=== PATIENT | male | born 1990 | race Caucasian/White ===

== ENCOUNTER 2021-04-05 20:08 | Observation (INO) ==
[2021-04-05] MEDS ORDERED: SODIUM CHLORIDE 0.9% 1000ML 1,000 ML IV ONE (20:51)
[2021-04-05] MEDS ORDERED: methylPREDNISolone 125 MG/2 ML VIAL IV STA (20:51)
[2021-04-05] MEDS ORDERED: cefTRIAXone SODIUM 1,000 MG/50 ML BAG IV STA (20:51)
--- NOTE | 2021-04-05 20:57 | Emergency Department Note ---
Impression & Plan Cellulitis, Tick bite ED Provider Note NAME: KARINA CLEMENTS AGE: 30 SEX: M : 1990 ARRIVES VIA: Walk-In INFORMANT: Patient ED PROVIDER(S): Kwasi Frank DO CHIEF COMPLAINT: Rash HPI: Patient is a 30-year-old male who presents ER for rash on his left flank. He notes this started about a week and a half ago after a tick bite. It gradually got worse. He was seen initially placed on Bactrim and then amoxicillin. He was seen here and given Rocephin and switched to doxycycline combination with 1 week of Keflex. He then presented again within the past 24 h ours as it was getting worse and given additional Rocephin. He returns tonight as the rash has gotten bigger and now he has some on the right flank. Denies any fevers. No headache or change in vision. No chest pain or shortness of breath. ROS: See above HPI for pertinent positives & negatives. A total of 10 systems reviewed and were otherwise negative. PAST MEDICAL HISTORY:See Below PAST SURGICAL HISTORY:See Below FAMILY HISTORY:See Below SOCIAL HISTORY:See Below HOME MEDICATIONS:See Below ALLERGIES:See Below VITALS:See Below PHYSICAL EXAMINATION: GENERAL: Sitting up in bed, alert, well appearing, well nourished, no distress, non-toxic EYE EXAM: normal conjunctiva. OROPHARYNX: no exudate, no erythema, lips, buccal mucosa, and tongue normal and mucous membranes are moist NECK: supple, no nuchal rigidity, no adenopathy, non-tender LUNGS: Clear to auscultation. Normal chest wall mechanics HEART: no murmurs, S1 normal and S2 normal ABDOMEN: abdomen soft, non-tender, normo-active bowel sounds, no masses, no rebound or guarding. BACK: Back is symmetrical on inspection and there is no deformity, no midline tenderness, no CVA tenderness. SKIN: Erythema which is warm and tender on the left flank. No petechiae. Peeling skin in the middle negative Nikolsky. Right flank with blotchy erythema which is raised. Negative Nikolsky. No petechiae. UPPER EXTREMITIES: upper extremities are grossly normal. LOWER EXTREMITIES: No pitting edema. NEURO EXAM: Normal sensorium, cranial nerves II-XII grossly intact, normal speech, no gross weakness of arms, no gross weakness of legs. MEDICAL DECISION MAKING: Patient is a 30-year-old male who presents the ER for his third visit. He has been treated for cellulitis on his left flank. The presents today as he noticed some redness in the right flank. Reviewed previous images that they took as this has progressed. Initially this did look like a dermatitis. Has Progressed to look more like a cellulitis. The rash now on the right flank I do believe looks more urticarial/hive related. Patient has been on doxycycline and Keflex as an outpatient and has been getting worse. IV was established blood was obtained. Labs show no significant leukocytosis or anemia. BMP was unremarkable. He was given steroids and did seem to improve. With the recurrent visits I do feel it warrants observation. Triage Nursing notes reviewed. Limited review of prior medical records performed Vital Signs: reviewed and remarkable for HTN Differential diagnosis: Cellulitis, abscess, MRSA infection, DVT, necrotizing fasciitis, dermatitis, drug eruption, allergic reaction, as well as other pathologies. ER treatment provided: See below Diagnostics interpreted by me: ECG: none Cardiac Monitoring: An order was placed for continuous cardiac monitoring. The monitor shows a rate of 52 with sinus rhythm. Laboratory studies: As stated above and show below. Imaging studies: See below Consultation(s): Discussed with Dr. Oliveira who for further evaluation Procedures: none Critical Care: None Past Med/Surg History Medical History No pertinent past medical history Surgical History No pertinent past surgical history Social History Smoking Status: Never smoker Preferred Language: [place] Island[place] Feels Safe at Home: Yes Allergies Allergies Allergy/AdvReac Type Severity Reaction Status Date / Time bee venom protein (honey bee) Allergy localized Verified 04/05/21 20:59 swelling and redness Home Meds Home Medications Medication Instructions Recorded Confirmed cetirizine [Zyrtec] 10 mg PO DAILY 04/01/21 04/05/21 Previous Rx's Medication Instructions Recorded cephalexin 500 mg PO QID 7 Days #28 tab 04/01/21 doxycycline hyclate 100 mg PO Q12H 21 Days #41 tab 04/01/21 Results & Data (ED) Vital Signs Vital Signs - 24 hr 04/05/21 20:11 04/05/21 22:15 Temperature 36.3 C L Temperature Source Temporal Artery Scan Pulse Rate 62 Pulse Rate [Apical] 50 L Respiratory Rate 18 18 Respiratory Effort / Characteristics Non-Labored Spontaneous Respiratory Depth Normal Blood Pressure 163/91 H Blood Pressure [Left Arm] 124/68 Blood Pressure Mean 115 Blood Pressure Mean [Left Arm] 86 Pulse Oximetry 99 100 Oxygen Delivery Method Room Air Room Air Sepsis Recent Fever Within 48 Hours No Sepsis New/Unexplained Change in Mental Status N/A Sepsis Action Taken by Nursing No Action Required Laboratory Data Result diagrams: 04/05/21 20:59 04/05/21 20:59 Lab Results 04/05/21 04/05/21 Range/Units 20:59 20:59 WBC 6.12 (4.8-10.8) K/uL RBC 4.43 L (4.7-6.1) M/uL Hgb 13.3 L (14.0-18.0) g/dL Hct 40.2 L (42-52) % MCV 90.7 (80-100) fL MCH 30.0 (25-34) pg MCHC 33.1 (32-36) g/dL RDW Std Deviation 42.8 (36.4-46.3) fL RDW Coeff of Davy 12.8 (11.5-14.5) % Plt Count 254 (130-400) K/uL MPV 11.4 H (7.4-10.4) fL Immature Gran % (Auto) 0.0 % Neut % (Auto) 33.6 % Lymph % (Auto) 46.7 % Kendall % (Auto) 12.1 % Eos % (Auto) 6.5 % Baso % (Auto) 1.1 % Neut # (Auto) 2.05 (1.4-6.5) K/uL Lymph # (Auto) 2.86 (1.2-3.4) K/uL Kendall # (Auto) 0.74 H (0.11-0.59) K/uL Eos # (Auto) 0.40 (0-0.5) K/uL Baso # (Auto) 0.07 (0-0.2) K/uL Immature Gran # (Auto) 0.00 (0.00-0.02) K/uL Sodium 142 (136-145) mmol/L Potassium 3.6 (3.5-5.1) mmol/L Chloride 107 (98-107) mmol/L Carbon Dioxide 31 (21-32) mmol/L Anion Gap 4.0 (3-11) BUN 15 (7-18) mg/dl Creatinine 1.25 D (0.6-1.4) mg/dl Est Cr Clr Drug Dosing 94.0 ml/min Est GFR ( Amer) 88.4 ml/min Est GFR (Non-Af Amer) 76.2 ml/min BUN/Creatinine Ratio 11.7 (10-20) Glucose 95 (70-99) mg/dl Calcium 8.9 (8.5-10.1) mg/dl Administered Medications Vancomycin HCl 2,250 mg/ (Sodium Chloride) 545 mls @ 200 mls/hr IV NOW ONE Stop: 04/06/21 00:57 Last Admin: 04/05/21 22:53 Dose: 200 mls/hr Documented by: [id number] Discontinued Medications Sodium Chloride (Nss 1000ml) 1,000 mls @ 999 mls/hr IV .Q1H1M ONE Stop: 04/05/21 21:51 Last Admin: 04/05/21 21:07 Dose: 999 mls/hr Documented by: [id number] Ceftriaxone Sodium (Rocephin) 1,000 mg in 50 mls @ 100 mls/hr IV NOW STA Stop: 04/05/21 21:20 Last Admin: 04/05/21 21:07 Dose: 100 mls/hr Documented by: [id number] Methylprednisolone (Methylprednisolone 125 Mg/2 Ml Vial) 125 mg IV NOW STA Stop: 04/05/21 20:52 Last Admin: 04/05/21 21:07 Dose: 125 mg Documented by: [id number] Discharge Plan Visit Data Chief Complaint: Skin Problem Stated Complaint: SKIN INFECTION ED Provider: Kwasi Frank Discharge Problem: Cellulitis, Tick bite Forms Stand Alone Forms: [facility] [place] [employer] [facility] [place] Prescriptions Prescriptions: No Action doxycycline hyclate 100 mg tablet 100 mg PO Q12H 21 Days Qty: 41 RF: 0 cephalexin 500 mg tablet 500 mg PO QID 7 Days Qty: 28 RF: 0 cetirizine [Zyrtec] 10 mg Tablet 10 mg PO DAILY RF: 0 Discharge Problem: Cellulitis Qualifiers: Site of cellulitis: trunk Site of cellulitis of trunk: abdominal wall Qualified Code(s): L03.311 - Cellulitis of abdominal wall Tick bite Qualifiers: Encounter type: initial encounter Qualified Code(s): W57.XXXA - Bitten or stung by nonvenomous insect and other nonvenomous arthropods, initial encounter
[2021-04-05 21:19] LABS: Basophils # (auto) 0.07 K/uL (0-0.2); Basophils % (auto) 1.1 %; Eosinophils % (auto) 6.5 %; Hematocrit (blood only) 40.2 % (42-52); Hemoglobin 13.3 g/dL (14.0-18.0); Lymphocytes # (auto) 2.86 K/uL (1.2-3.4); Lymphocytes % (auto) 46.7 %; Mean Corpuscular Hgb Conc 33.1 g/dL (32-36); Mean Corpuscular Volume 90.7 fL (80-100); Mean Platelet Volume 11.4 fL (7.4-10.4); Monocytes # (auto) 0.74 K/uL (0.11-0.59); Monocytes % (auto) 12.1 %; Neutrophils # (auto) 2.05 K/uL (1.4-6.5); Neutrophils % (auto) 33.6 %; Platelet Count 254 K/uL (130-400); RDW Coefficient of Variation 12.8 % (11.5-14.5); RDW Standard Deviation 42.8 fL (36.4-46.3); Red Blood Count 4.43 M/uL (4.7-6.1); White Blood Count 6.12 K/uL (4.8-10.8)
[2021-04-05 21:35] LABS: BUN Creatinine Ratio 11.7 (10-20); Calcium 8.9 mg/dl (8.5-10.1); Est GFR (African American) 88.4 ml/min; Est GFR (Non-African American) 76.2 ml/min; Potassium 3.6 mmol/L (3.5-5.1)
[2021-04-05] MEDS ORDERED: VANCOMYCIN CONSULT ACTIVE PRN (22:14)
[2021-04-05] MEDS ORDERED: VANCOMYCIN HCL 2,250 MG in SODIUM CHLORIDE 0.9% 500 ML IV ONE (22:14)
--- NOTE | 2021-04-06 00:33 | History and Physical Report ---
DATE OF ADMISSION: 04/05/2021 CHIEF COMPLAINT: Tick bite and cellulitis of the flank region. HISTORY OF PRESENT ILLNESS: A 30-year-old male with no significant past medical history, had tick bite about a couple of weeks ago and 1 week ago he developed a rash in his left flank region. One week prior to rash he removed the tick and also had a couple of bug bites there. He went to PCP's office on 03/30/2021 and was prescribed Bactrim and one time dose of doxycycline was given. He went again on 03/31/2021 to his PCP's office with worsening cellulitis and amoxicillin was added to Bactrim, but as it was not getting better, he was advised to go to the ER. He came to the ER on 04/01/2021 and he was given a dose of Rocephin and discharged on doxycycline and Keflex. Again, he came to the ER on 04/04/2021 as he was not getting better. Some areas that were decreasing but some other areas were increased and he was given another shot of Rocephin and advised to continue doxycycline and Keflex, but today it has gone to the other flank too. So he came back here. His labs are okay. He was given a dose of Rocephin and started on vancomycin and we were called for admission. Currently resting comfortably and hemodynamically stable. Denies any fever, chills. He says sometimes feels like a sunburn kind of sensation to the rash area, mild itching, some dry area where tick and bugs had bitten. Some nausea from medications. Appetite is okay. No chest pain or shortness of breath. No cough, no headache, no blurred vision, no earache, no runny nose, no sore throat. Normal bowel and bladder movements. ALLERGIES: BEE VENOM. PAST MEDICAL HISTORY: As mentioned above. PAST SURGICAL HISTORY: None. MEDICATIONS: Currently on doxycycline and Keflex. FAMILY HISTORY: Significant for mother has allergies, asthma and hypertension. Grandmother has diabetes. Uncle has hypertension. Maternal grandfather has melanoma. SOCIAL HISTORY: Single. No smoking. Alcohol, 2 drinks a week. REVIEW OF SYMPTOMS: As per HPI. Rest of review of systems negative. PHYSICAL EXAMINATION: GENERAL: The patient is of moderate build, not in acute distress. VITAL SIGNS: Temperature 36.3, pulse 50, respiratory rate 18, blood pressure 124/68, oxygen 100% on room air. HEENT: Pupils equal, round, reactive to light. Oral mucosa moist. NECK: No JVD, no neck masses. CARDIOVASCULAR: S1, S2 heard, regular rate and rhythm, no murmur, no gallop. RESPIRATORY SYSTEM: Normal AP diameter. No accessory muscle use. No wheezing, no crackles. ABDOMEN: Soft, bowel sounds present, nontender. No distention. CENTRAL NERVOUS SYSTEM: Cranial nerves II-XII grossly intact, nonfocal. EXTREMITIES: No edema. SKIN: Erythematous rash seen mostly in the left flank and some mild rash on the back of his trunk up to the right flank is also seen. LABORATORY DATA: WBC 6, hemoglobin 13.3, hematocrit 40.2, platelets 254. Sodium 142, potassium 3.6, chloride 107, bicarbonate 31, BUN 15, creatinine 1.25, serum glucose 95, calcium 8.9. ASSESSMENT AND PLAN: This is a 30-year-old male who presents with ongoing cellulitis with tick bites and bug bites in the flank region. 1. Cellulitis. Tick bites and bug bites a couple of weeks ago, received 1 dose of doxycycline 1 week ago, and initially treated with Bactrim, but that is not getting better. Amoxicillin was added as outpatient. He was not getting better. He came to the ER twice and received dose of Rocephin and was placed on doxycycline and Keflex, but it is not getting better, so he came back here today. Empirically started on vancomycin and again given Rocephin in the ER. We will continue with vancomycin and Zosyn. Continue with p.o. doxycycline. . Monitor the response. Gentle fluids 1 liter.Will get lyme test and check for anaplasmosis. Monitor on medical floor. 2. Deep vein thrombosis prophylaxis, sequential compression devices. 3. Disposition: Closely monitor. Expect discharge home and follow with family doctor. PATRICIA
[2021-04-06] MEDS ORDERED: SODIUM CHLORIDE 0.9% 1000ML 1,000 ML IV SCH (00:49)
[2021-04-06] MEDS ORDERED: ACETAMINOPHEN 325 MG TAB PO PRN (00:49)
[2021-04-06] MEDS ORDERED: POLYETHYLENE (MIRALAX) 17 GM PACK PO PRN (00:49)
[2021-04-06] MEDS ORDERED: ONDANSETRON INJ 2 MG/ML 2 ML VIAL IV PRN (00:49)
[2021-04-06] MEDS ORDERED: PIPERACILL/TAZOBAC CONSULT ACTIVE PRN (00:49)
[2021-04-06] MEDS: PIPERACILLIN/TAZOBACTAM 3.375 GM in DEXTROSE 5% 100 ML IV SCH ×3 (02:12→18:15)
[2021-04-06] MEDS: VANCOMYCIN HCL 1,250 MG in SODIUM CHLORIDE 0.9% 250 ML IV SCH ×2 (06:10→14:07)
[2021-04-06] MEDS: DOXYCYCLINE HYCLATE 100 MG CAP PO SCH ×2 (06:10→18:14)
[2021-04-06 06:39] LABS: Lyme Ab IgG w/WB Rflx Negative (Negative); Lyme Ab IgM w/WB Rflx Negative (Negative)
[2021-04-06] MEDS: CETIRIZINE HCL 10 MG TABLET PO SCH (09:12)
[2021-04-06 11:17] LABS: Est GFR (African American) 99.8 ml/min; Est GFR (Non-African American) 86.1 ml/min
[2021-04-06] MEDS ORDERED: SODIUM CHLORIDE 0.9% 1000ML 1,000 ML IV ONE (11:46)
--- NOTE | 2021-04-06 17:25 | Hospitalist Progress Note ---
Date of Service April 06, 2021 Assessment & Plan (1) Tick bite: Reports of tick bite a week ago, managed to get taken off, was started with doxycycline as an outpatient, Not have a fever or chills, no joint pain or headache Lyme titer being negative (2) Cellulitis: Developed cellulitis on left flank area the area of insect bite Patient was treated with Bactrim, was given dose of Rocephin in the ER, symptom continues to worsen, On admission patient was started with vancomycin/Zosyn. Appreciate input from Ailyn GONZALEZ, patient may have a localized cellulitis secondary to insect bite/tick bite. Recommend antibiotic changed to oral Augmentin for 5 days Completely 7 more days of p.o. doxycycline Patient is stable to be discharged home today Admission and Anticipated Discharge Date Admission Date: April 05, 2021 Subjective Reports burning sensation on the left flank, with itching, symptoms does not have improved much No fever or chills Does not have any shortness of breath or cough No headache. Tolerating antibiotic well Review of Systems Review of Systems: All systems reviewed & are unremarkable except as noted in Subjective Physical Exam Physical Exam: Physical exam: General: No acute distress, alert awake oriented x3 HEENT: PERRLA, EOMI, Heart: Regular S1-S2, no carotid bruit, no JVD, no lower extremity edema Lungs: Clear to auscultate, no wheeze or rales Abdomen: Soft nontender, no organomegaly Extremity: Diffuse erythema/on flanks left more than the right, with local area of scaling /positive burning sensation/positive itching Neuro: No focal neurological deficit normal speech, normal visual field, Motor strength : normal both upper and lower extremity, sensation intact Psych: Alert awake oriented x3, normal affect Results & Data Results & Data ([facility]) Vital Signs (Past 12 Hours) Vital Signs Temp Pulse Resp BP Pulse Ox 04/06/21 17:13 37.0 C 60 16 148/79 H 99 04/06/21 08:39 36.8 C 69 16 119/83 98 (1) Cellulitis Site of cellulitis: trunk Site of cellulitis of trunk: abdominal wall Qualified Code(s): L03.311 - Cellulitis of abdominal wall (2) Tick bite Encounter type: initial encounter Qualified Code(s): W57.XXXA - Bitten or stung by nonvenomous insect and other nonvenomous arthropods, initial encounter
[2021-04-07] MEDS: PIPERACILLIN/TAZOBACTAM 3.375 GM in DEXTROSE 5% 100 ML IV SCH ×2 (02:11→11:34)
[2021-04-07] MEDS: DOXYCYCLINE HYCLATE 100 MG CAP PO SCH (05:56)
[2021-04-07] MEDS: CETIRIZINE HCL 10 MG TABLET PO SCH (07:53)
[2021-04-07 08:10] LABS: Creatinine Clr Calc Pharmacy 106.8 ml/min; Est GFR (African American) 103.1 ml/min
[2021-04-07] MEDS ORDERED: hydrOXYzine HCl 10 MG TAB PO PRN (15:58)
[2021-04-07] MEDS ORDERED: AMOXICILLIN/CLAVULANATE 875 MG TAB PO ONE (15:59)
[2021-04-07] MEDS ORDERED: cephALEXin 500 MG CAP PO SCH (17:00)
--- NOTE | 2021-04-08 13:23 | Discharge Summary ---
Date of Service April 08, 2021 Admission HPI Per Admitting Provider DICTATED BY: Tyler Johnson MD DATE OF ADMISSION: 04/05/2021 CHIEF COMPLAINT: Tick bite and cellulitis of the flank region. HISTORY OF PRESENT ILLNESS: A 30-year-old male with no significant past medical history, had tick bite about a couple of weeks ago and 1 week ago he developed a rash in his left flank region. One week prior to rash he removed the tick and also had a couple of bug bites there. He went to PCP's office on 03/30/2021 and was prescribed Bactrim and one time dose of doxycycline was given. He went again on 03/31/2021 to his PCP's office with worsening cellulitis and amoxicillin was added to Bactrim, but as it was not getting better, he was advised to go to the ER. He came to the ER on 04/01/2021 and he was given a dose of Rocephin and discharged on doxycycline and Keflex. Again, he came to the ER on 04/04/2021 as he was not getting better. Some areas that were decreasing but some other areas were increased and he was given another shot of Rocephin and advised to continue doxycycline and Keflex, but today it has gone to the other flank too. So he came back here. His labs are okay. He was given a dose of Rocephin and started on vancomycin and we were called for admission. Currently resting comfortably and hemodynamically stable. Denies any fever, chills. He says sometimes feels like a sunburn kind of sensation to the rash area, mild itching, some dry area where tick and bugs had bitten. Some nausea from medications. Appetite is okay. No chest pain or shortness of breath. No cough, no headache, no blurred vision, no earache, no runny nose, no sore throat. Normal bowel and bladder movements. Principal Diagnosis Tick Bite Cellulitis at the tick bite site Discharge Data Allergies Allergy/AdvReac Type Severity Reaction Status Date / Time bee venom protein (honey bee) Allergy localized Verified 04/05/21 20:59 swelling and redness Consultations 04/05/21 22:14 ED Decision to Admit Stat 04/06/21 20:08 Consult Infectious Diseases Routine Hospital Course (1) Tick bite: Reports of tick bite a week ago, managed to get taken off, was started with doxycycline as an outpatient, Not have a fever or chills, no joint pain or headache Lyme titer being negative (2) Cellulitis: Developed cellulitis on left flank area the area of insect bite Patient was treated with Bactrim, was given dose of Rocephin in the ER, symptom continues to worsen, On admission patient was started with vancomycin/Zosyn. Appreciate input from Ailyn GONZALEZ, patient may have a localized cellulitis secondary to insect bite/tick bite. Recommend antibiotic changed to oral Augmentin for 5 days Completely 7 more days of p.o. doxycycline Patient is stable to be discharged home today Total Time Total Time Spent Total Time Spent (In Minutes): 35 mins Total Time Includes: Discharge Planning and Medication Reconciliation Discharge Plan Discharge Items Patient Disposition: Home - Self-Care Reason For Visit: SKIN PROBLEM Discharge Diagnosis: Take bite Cellulitis/inflammation at the tick bite area Activity: Resume your previous activity Non-emergency contact: Primary Care Provider Call non-emergency contact if: you have any medication questions Follow-up/Referrals: Frederick Johnson MD [Primary Care Provider] - (Hospital follow-up with family physician in a week, office will call with appointment) Diet: Regular Addtl Attending Provider Instructions: Please take all medications as instructed on discharge list below. It is recommended that you follow-up with your primary care physician within 1-2 weeks of hospital discharge to ensure you are still doing well. Please call if you have any questions or problems. You can reach a [facility] hospitalist on duty at [facility] 24 hours a day by calling [phone] Addtl Remedy Developer Provider Instructions: Continue doxycycline 100 mg twice daily 7 more days amoxicillin/clavulanate (Augmentin) 500 mg oral every 8 hours for 1 week. You can take hydroxyzine 2 mg tablet every 6 hours as needed for itching, Preferably take it before bedtime, avoid driving after taking this meds for risk of sedation Please follow the instructions regarding insect avoidance (permethrin, DEET) You can use [id number] Benadryl cream as needed for intractable itching, Pending Studies at Discharge: No Stand-Alone Forms: [facility], Work/School Release, Smoking Cessation Medications and DC Order Prescriptions: New hydroxyzine HCl 10 mg Tablet 10 mg PO Q6 PRN (Reason: itching) Qty: 60 RF: 2 amoxicillin-pot clavulanate [Augmentin] 875-125 mg tablet 1 tab PO BID 5 Days Qty: 10 RF: 0 Continued cetirizine [Zyrtec] 10 mg Tablet 10 mg PO DAILY RF: 0 doxycycline hyclate 100 mg tablet 100 mg PO Q12H 7 Days Qty: 14 RF: 0 Discontinued cephalexin 500 mg tablet 500 mg PO QID 7 Days Qty: 28 RF: 0 Discharge Orders: Discharge Order (Routine); Ordered 04/07/21 Ordered By: Mia Leary/Other Patient Handouts: Tick Bites, ED Insect Sting/Bite, Infected Admission Data Admit Date/Time: 04/05/21 23:25 Attending Provider: Mia Irby Admit Provider: Tyler Johnson Primary Care Provider: Frederick Johnson Other Providers: Tyler Johnson ; Walker Francis ; Hank Jordan ; Mauro Domingo I. ; Mickey Roca II ; Kimmy Navarro ; Willian Herzog Other Interventions: Discharge Summary Assessment (RN) Last Done: 04/07/21 16:40
== END 2021-04-07 18:16 | disposition home or self-care (01) ==
LOC: ED 20:08 → 3W 20:08